=== PATIENT | female | born 1980 | race Caucasian/White ===

== ENCOUNTER 2017-03-26 12:24 | Emergency (ER) | payer OTHER ==
[2017-03-26 13:19] VITALS: BP 96/59
--- NOTE | 2017-03-26 13:31 | UC ---
UC General HPI - HPI Summary HPI Summary: complaint of feeling feverish feeling achy for 2 days ago nausea for 2 days - denies vomiting softer stool than normal- nausea has resolved intermittent sore throat nasal congestion for 2 days intermittent headaches and muscle achiness yesterday noticed a rash on her thighs denies coughing denies abdominal pain denies dysuria denies increase d frequency and urgency LMP - having currently 3 year old daughter with similiar illness last week taking ibuprofen, pepto bismal and dramimine with some relief - History of Current Complaint Chief Complaint: UCGeneralIllness Stated Complaint: FEVER ACHY NECK PAIN/LEGS SKIN COMPLAINT Time Seen by Provider: 03/26/17 13:24 Hx Obtained From: Patient - Allergy/Home Medications Allergies/Adverse Reactions: Allergies Allergy/AdvReac Type Severity Reaction Status Date / Time Sulfa Drugs Allergy Intermediate Hives Verified 03/26/17 13:18 Gluten Meal Allergy Abdominal Verified 03/26/17 13:18 Pain PMH/Surg Hx/FS Hx/Imm Hx Previously Healthy: Yes Psychological History: Anxiety, Depression - Surgical History Surgical History: Yes Surgery Procedure, Year, and Place: D & C. OVARIAN CYST REMOVED,. and tubal ligation 04/15/15 - Family History Known Family History: Positive: Hypertension - mother Negative: Cardiac Disease, Diabetes - Social History Occupation: Employed Full-time Lives: With Family Alcohol Use: Occasionally Substance Use Type: None Smoking Status (MU): Former Smoker When Did the Patient Quit Smoking/Using Tobacco: 05/2014 - Immunization History Most Recent Influenza Vaccination: 2014 Review of Systems Constitutional: Fever, Chills, Fatigue Skin: Rash Eyes: Negative ENT: Sore Throat, Nasal Discharge Respiratory: Negative Cardiovascular: Negative Gastrointestinal: Negative Genitourinary: Negative Motor: Negative Neurovascular: Negative Musculoskeletal: Negative Neurological: Headache Psychological: Negative All Other Systems Reviewed And Are Negative: Yes Physical Exam Triage Information Reviewed: Yes Appearance: Well-Appearing, No Pain Distress, Well-Nourished Vital Signs: Initial Vital Signs Temp 97.9 F 03/26/17 13:14 Pulse 66 03/26/17 13:14 Resp 16 03/26/17 13:14 BP 96/59 03/26/17 13:14 Pulse Ox 100 03/26/17 13:14 Vital Signs Reviewed: Yes Eyes: Positive: Conjunctiva Clear ENT: Positive: Pharyngeal erythema, Nasal congestion, Nasal drainage. Negative : TMs normal Neck: Positive: Supple, No Lymphadenopathy. Negative: Nuchal Rigidity Respiratory: Positive: Lungs clear, Normal breath sounds, No respiratory distress, No accessory muscle use Cardiovascular: Positive: RRR, No Murmur, Pulses Normal, Brisk Capillary Refill Abdomen Description: Positive: Nontender, No Organomegaly, Soft. Negative: CVA Tenderness (R), CVA Tenderness (L), Distended, Guarding Bowel Sounds: Positive: Present Musculoskeletal: Positive: No Edema Neurological: Positive: Alert Psychological Exam: Normal Skin: Positive: Other - both thighs with anh apearing rash Course/Dx - Course Course Of Treatment: exam completed. patient appears to have a viral illness similiar to daughters recent illness. will have her continue supportive care- fluids and NSAIDS. followup with PCP - Differential Dx - Multi-Symptom Provider Diagnoses: viral illness Discharge - Discharge Plan Condition: Stable Disposition: HOME Patient Education Materials: Fever in Adults (ED) Referrals: [id number] [Provider Group] Additional Instructions: You have a viral illness Increase fluids and rest Take acetaminophen or ibuprofen for fever or pain Please review your discharge instructions. If your symptoms do not improve please call your primary care provider or return to urgent care.
== END 2017-03-26 14:13 | disposition home or self-care (01) ==
LOC: UCCORT 12:24
DX: B34.9 Viral infection, unspecified (principal); F41.9 Anxiety disorder, unspecified; F32.9 Major depressive disorder, single episode, unspecified; Z88.2 Allergy status to sulfonamides; Z87.891 Personal history of nicotine dependence
CPT/HCPCS: 87651; 99211; G0463

== ENCOUNTER 2017-08-23 13:54 | Emergency (ER) | payer MEDICAID, OTHER ==
[2017-08-23 14:36] VITALS: BP 99/67
--- NOTE | 2017-08-23 14:39 | UC ---
Respiratory Complaint HPI - HPI Summary HPI Summary: 37 year old female with cough. Productive cough w/ green phlegm and runny nose since . Cough getting worse. Denies fever/chills. No meds taken today. Was getting better but 7 days ago cough worsened and having increased body aches and had cough spell at work today and cough at night keeping her up at night. [ End ] - History of Current Complaint Chief Complaint: UCRespiratory Stated Complaint: COUGH, RUNNY NOSE, HEADACHE Time Seen by Provider: 08/23/17 14:33 Hx Obtained From: Patient Hx Last Menstrual Period: 08/20/17 Onset/Duration: Gradual Onset Timing: Constant Severity Initially: Mild Severity Currently: Moderate Character: Cough: Productive Aggravating Factors: Nothing Alleviating Factors: Nothing Associated Signs And Symptoms: Positive: Nasal Congestion, Sinus Discomfort - Allergies/Home Medications Allergies/Adverse Reactions: Allergies Allergy/AdvReac Type Severity Reaction Status Date / Time Sulfa Drugs Allergy Intermediate Hives Verified 08/23/17 14:22 Gluten Meal Allergy Abdominal Verified 08/23/17 14:22 Pain Home Medications: Home Medications Folic Acid TAB* [Folvite TAB*] 1 tab DAILY 08/23/17 [History Confirmed 08/23/17] Lupus Med 4 tab WEEKLY 08/23/17 [History Confirmed 08/23/17] Venlafaxine EXT RELEASE CAP* [Effexor Xr CAP*] 1 tab DAILY 08/23/17 [History Confirmed 08/23/17] PMH/Surg Hx/FS Hx/Imm Hx Previously Healthy: Yes Cardiovascular History: Other Other Cardiovascular History: lupus Psychological History: Anxiety, Depression - Surgical History Surgical History: Yes Surgery Procedure, Year, and Place: D & C. OVARIAN CYST REMOVED,. 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 Alcohol Use: None Substance Use Type: None Smoking Status (MU): Former Smoker When Did the Patient Quit Smoking/Using Tobacco: 05/2014 - Immunization History Most Recent Influenza Vaccination: no Review of Systems Constitutional: Fatigue ENT: Sore Throat, Nasal Discharge, Sinus Congestion, Sinus Pain/Tenderness Respiratory: Cough Is Patient Immunocompromised?: No All Other Systems Reviewed And Are Negative: Yes Physical Exam Triage Information Reviewed: Yes Appearance: Well-Appearing, No Pain Distress, Well-Nourished Vital Signs: Initial Vital Signs Temp 98 F 08/23/17 14:24 Pulse 64 08/23/17 14:24 Resp 16 08/23/17 14:24 BP 99/67 08/23/17 14:24 Pulse Ox 100 08/23/17 14:24 Vital Signs Reviewed: Yes Eye Exam: Normal ENT Exam: Normal ENT: Positive: Nasal congestion Dental Exam: Normal Neck exam: Normal Respiratory Exam: Normal Cardiovascular Exam: Normal Musculoskeletal Exam: Normal Neurological Exam: Normal Psychological Exam: Normal UC Diagnostic Evaluation - Laboratory O2 Sat by Pulse Oximetry: 100 Respiratory Course/Dx - Course Course Of Treatment: Conservative treatment for 2-3 days and if worsened then start antibiotics. - Differential Dx/Diagnosis Differential Diagnosis/HQI/PQRI: Bronchitis, Lower Resp Infection, Sinusitis Provider Diagnoses: URI Discharge - Discharge Plan Condition: Guarded Disposition: HOME Prescriptions: Amoxicillin/Clavulanate TAB* [Augmentin TAB 875*] 875 mg PO BID #20 tab Benzonatate [Benzonatate 200 MG] 200 mg PO TID #20 cap Patient Education Materials: Upper Respiratory Infection (ED) Referrals: AYANNA Callahan [Primary Care Provider] - 4 Days Additional Instructions: As we discussed please use cough meds, sudafed, flonase and netti pot and if your symptoms worsen then star the antibiotics in 2-3 days
== END 2017-08-23 14:48 | disposition home or self-care (01) ==
LOC: UCCORT 13:54
DX: J06.9 Acute upper respiratory infection, unspecified (principal); Z87.891 Personal history of nicotine dependence
CPT/HCPCS: 99211; G0463

== ENCOUNTER 2017-09-22 10:28 | Emergency (ER) | payer MEDICAID, OTHER ==
--- NOTE | 2017-09-22 11:30 | ED ---
Throat Pain/Nasal Congestion - HPI Summary HPI Summary: 37 yr old female with the complaint of ear pain right side. Onset two days with sore throat and ear ache. Denies fever and chills. Denies trouble breathing, swallowing. No other complaints. - History of Current Complaint Time Seen by Provider: 09/22/17 11:16 - Allergies/Home Medications Allergies/Adverse Reactions: Allergies Allergy/AdvReac Type Severity Reaction Status Date / Time Sulfa Drugs Allergy Intermediate Hives Verified 08/23/17 14:22 Gluten Meal Allergy Abdominal Verified 08/23/17 14:22 Pain Home Medications: Home Medications Methotrexate TAB* 4 PO Q7D 09/22/17 [History] PMH/Surg Hx/FS Hx/Imm Hx Previously Healthy: Yes - Surgical History Surgery Procedure, Year, and Place: D & C. OVARIAN CYST REMOVED,. and tubal ligation 04/15/15 Infectious Disease History: Denies: Traveled Outside the [place] in Last 30 Days - Family History Known Family History: Positive: Hypertension - mother Negative: Cardiac Disease, Diabetes - Social History Occupation: Employed Full-time Alcohol Use: Occasionally Substance Use Type: Reports: None Smoking Status (MU): Former Smoker Review of Systems Constitutional: Negative Positive: Ear Ache All Other Systems Reviewed And Are Negative: Yes Physical Exam Triage Information Reviewed: Yes Vital Signs Reviewed: Yes Appearance: Positive: Well-Appearing, No Pain Distress Skin: Positive: Warm Head/Face: Positive: Normal Head/Face Inspection Eyes: Positive: EOMI ENT: Positive: Pharyngeal erythema - mild, TM dull - right, TM red - right Neck: Positive: Nontender Respiratory/Lung Sounds: Positive: Clear to Auscultation, Breath Sounds Present Cardiovascular: Positive: RRR. Negative: Murmur Abdomen Description: Positive: Nontender Musculoskeletal: Positive: Strength/ROM Intact Neurological: Positive: Sensory/Motor Intact, Alert, Oriented to Person Place, Time, CN Intact II-III Psychiatric: Positive: Normal - [place] Coma Scale Best Eye Response: 4 - Spontaneous Best Motor Response: 6 - Obeys Commands Best Verbal Response: 5 - Oriented EENT Course/Dx - Course Course Of Treatment: 37 yr old with right otitis media. Plan Rx with Amox. - Diagnoses Provider Diagnoses: Otitis media Discharge - Discharge Plan Condition: Good Disposition: HOME Prescriptions: Amoxicillin 500 mg PO TID #30 cap Patient Education Materials: Otitis Media (ED) Referrals: AYANNA Callahan [Primary Care Provider] - 2 Days
[2017-09-22 11:32] VITALS: BP 102/62
== END 2017-09-22 11:52 | disposition home or self-care (01) ==
LOC: UCCORT 10:28
DX: H66.91 Otitis media, unspecified, right ear (principal); Z88.2 Allergy status to sulfonamides; Z91.018 Allergy to other foods; Z87.891 Personal history of nicotine dependence
CPT/HCPCS: 99212; G0463

== ENCOUNTER 2018-07-19 12:32 | Emergency (ER) | payer OTHER ==
--- NOTE | 2018-07-19 12:49 | UC ---
Respiratory Complaint HPI - HPI Summary HPI Summary: 38 yo female presents with body aches and slight cough for the last 2 days. She has not been taking anything OTC. She tells me that her 3yo daughter was recently dx'd with PNA and pt is concerned that she is "starting to get something". Denies fever, chills, SOB, chest pain. - History of Current Complaint Stated Complaint: CONGESTION COUGH Time Seen by Provider: 07/19/18 12:49 Hx Obtained From: Patient Hx Last Menstrual Period: 09/15/17 Onset/Duration: Sudden Onset Character: Cough: Nonproductive - Allergies/Home Medications Allergies/Adverse Reactions: Allergies Allergy/AdvReac Type Severity Reaction Status Date / Time gluten Allergy Abdominal Verified 07/19/18 13:02 Pain Sulfa (Sulfonamide Allergy Hives Verified 07/19/18 13:02 Antibiotics) PMH/Surg Hx/FS Hx/Imm Hx - Additional Past Medical History Additional PMH: Lupus Psychological History: Anxiety, Depression - Surgical History Surgical History: Yes Surgery Procedure, Year, and Place: D & C. OVARIAN CYST REMOVED,. and tubal ligation 04/15/15 - Family History Known Family History: Positive: Hypertension - mother Negative: Cardiac Disease, Diabetes - Social History Alcohol Use: Occasionally Substance Use Type: None Smoking Status (MU): Former Smoker When Did the Patient Quit Smoking/Using Tobacco: 05/2014 - Immunization History Most Recent Influenza Vaccination: NO Review of Systems All Other Systems Reviewed And Are Negative: Yes Constitutional: Positive: Other - Body aches Skin: Positive: Negative Eyes: Positive: Negative ENT: Positive: Negative Respiratory: Positive: Cough Cardiovascular: Positive: Negative Gastrointestinal: Positive: Negative Musculoskeletal: Positive: Negative Neurological: Positive: Negative Psychological: Positive: Negative Physical Exam - Summary Physical Exam Summary: GENERAL: NAD. WDWN. No pain distress. SKIN: No rashes, sores, lesions, or open wounds. HEENT: Head: AT/NC Eyes: EOM intact. Conjunctiva clear without inflammation or discharge. Ears: Hearing grossly normal. TMs intact, no bulging, erythema, or edema. Nose: Nasal mucosa pink and moist. NTTP maxillary and frontal sinus. Throat: Posterior oropharynx without exudates, erythema, or tonsillar enlargement. Uvula midline. NECK: Supple. Nontender. No lymphadenopathy. CHEST: CTAB. No r/r/w. No accessory muscle use. Breathing comfortably and in no distress. CV: RRR. Without m/r/g. Pulses intact. Cap refill <2seconds NEURO: Alert. PSYCH: Age appropriate behavior. Triage Information Reviewed: Yes Vital Signs: Vital Signs: Temp Pulse Resp BP Pulse Ox 97.5 F 52 16 114/63 100 07/19/18 13:00 07/19/18 13:00 07/19/18 13:00 07/19/18 13:00 07/19/18 13:00 Vital Signs Reviewed: Yes Respiratory Course/Dx - Course Course Of Treatment: CXR: IMPRESSION: No active cardiopulmonary disease is identified. Suspect viral illness. Advised to try tylenol, mucinex, and robitussin OTC. F/u if symptoms persist or worsen. - Differential Dx/Diagnosis Provider Diagnoses: Viral syndrome Discharge - Sign-Out/Discharge Documenting (check all that apply): Patient Departure All imaging exams completed and their final reports reviewed: Yes - Discharge Plan Condition: Stable Disposition: HOME Patient Education Materials: Viral Syndrome (ED) Referrals: No Primary Care Phys,NOPCP [Primary Care Provider] - Additional Instructions: If you develop a fever, shortness of breath, chest pain, new or worsening symptoms - please call your PCP or go to the ED. - Billing Disposition and Condition Condition: STABLE Disposition: Home - Attestation Statements Provider Attestation: I was available for consult. This patient was seen by the FLACO. The patient was not presented to, seen by, or examined by me. -Vivi
[2018-07-19 13:06] VITALS: BP 114/63
== END 2018-07-19 13:23 | disposition home or self-care (01) ==
LOC: UCCORT 12:32
DX: B34.9 Viral infection, unspecified (principal); R05 Cough; R52 Pain, unspecified; R09.81 Nasal congestion; Z88.2 Allergy status to sulfonamides; Z91.018 Allergy to other foods; Z87.891 Personal history of nicotine dependence
CPT/HCPCS: 71046; 99211; G0463

== ENCOUNTER 2018-10-12 10:15 | Emergency (ER) | payer OTHER ==
[2018-10-12 11:47] VITALS: BP 105/71
--- NOTE | 2018-10-12 11:50 | UC ---
FLU HPI - HPI Summary HPI Summary: Pt c/o SWIFT cough X 2 days. denies fever chills nasal congestion congestion - History of Current Complaint Chief Complaint: UCRespiratory Stated Complaint: COUGH, HEADACHE Time Seen by Provider: 10/12/18 11:29 Hx Obtained From: Patient Hx Last Menstrual Period: 10/04/18 ?: No Onset/Duration: Sudden Onset, Lasting Days, Still Present Severity Currently: Mild Severity Initially: Mild Pain Intensity: 6 Associated Signs & Symptoms: Positive: Myalgia, Cough, Nasal Congestion, Headache Related Hx: Possible Flu/Infectious Exposure - Risk Factors Influenza Risk Factors: Negative - Allergy/Home Medications Allergies/Adverse Reactions: Allergies Allergy/AdvReac Type Severity Reaction Status Date / Time gluten Allergy Abdominal Verified 10/12/18 11:42 Pain Sulfa (Sulfonamide Allergy Hives Verified 10/12/18 11:42 Antibiotics) PMH/Surg Hx/FS Hx/Imm Hx Previously Healthy: Yes - Surgical History Surgical History: Yes Surgery Procedure, Year, and Place: D & C. OVARIAN CYST REMOVED,. and tubal ligation 04/15/15 - Family History Known Family History: Positive: Hypertension - mother Negative: Cardiac Disease, Diabetes - Social History Occupation: Employed Full-time Lives: With Family Alcohol Use: Occasionally Substance Use Type: None Smoking Status (MU): Former Smoker Have You Smoked in the Last Year: No When Did the Patient Quit Smoking/Using Tobacco: 05/2014 - Immunization History Most Recent Influenza Vaccination: NO Review of Systems All Other Systems Reviewed And Are Negative: Yes Constitutional: Positive: Negative Skin: Positive: Negative Eyes: Positive: Negative ENT: Positive: Negative Respiratory: Positive: Cough Cardiovascular: Positive: Negative Gastrointestinal: Positive: Negative Genitourinary: Positive: Negative Motor: Positive: Negative Neurovascular: Positive: Negative Musculoskeletal: Positive: Negative Neurological: Positive: Headache Psychological: Positive: Negative Is Patient Immunocompromised?: No Physical Exam Triage Information Reviewed: Yes Appearance: Well-Appearing Vital Signs: Initial Vital Signs Temp 98.8 F 10/12/18 11:43 Pulse 70 10/12/18 11:43 Resp 16 10/12/18 11:43 BP 105/71 10/12/18 11:43 Pulse Ox 100 10/12/18 11:43 Vital Signs Reviewed: Yes Eye Exam: Normal ENT Exam: Normal Dental Exam: Normal Neck exam: Normal Respiratory Exam: Normal Cardiovascular Exam: Normal Musculoskeletal Exam: Normal Neurological Exam: Normal Psychological Exam: Normal Skin Exam: Normal Flu Course/Dx - Differential Dx/Diagnosis Differential Diagnosis/HQI/PQRI: Bronchitis, Influenza, Upper Respiratory Infection Provider Diagnosis: Viral syndrome Discharge - Sign-Out/Discharge Documenting (check all that apply): Patient Departure All imaging exams completed and their final reports reviewed: No Studies - Discharge Plan Condition: Stable Disposition: HOME Prescriptions: Benzonatate CAP* [Tessalon 100 MG CAP*] 200 mg PO Q8H PRN #30 cap PRN Reason: Cough Guaifenesin/Pseudoephedrne HCl [Mucinex D ER 600-60 mg Tablet] 1 each PO Q12H # 14 tab.er.12h Patient Education Materials: Viral Syndrome (ED) Referrals: Rhina Strauss [Primary Care Provider] - If Needed - Billing Disposition and Condition Condition: STABLE Disposition: Home - Attestation Statements Provider Attestation: I was available for consult. This patient was seen by the FLACO. The patient was not presented to, seen by, or examined by me. EK
== END 2018-10-12 12:32 | disposition home or self-care (01) ==
LOC: UCCORT 10:15
DX: B34.9 Viral infection, unspecified (principal); R05 Cough; R51 Headache; Z88.2 Allergy status to sulfonamides; Z91.018 Allergy to other foods; Z87.891 Personal history of nicotine dependence
CPT/HCPCS: 99212; G0463

== ENCOUNTER 2018-12-02 15:49 | Emergency (ER) | payer OTHER ==
[2018-12-02 17:25] VITALS: BP 96/61
--- NOTE | 2018-12-02 17:34 | UC ---
Throat Pain/Nasal Vicente HPI - HPI Summary HPI Summary: Sore throat, fever over the past 2 days. - History of Current Complaint Chief Complaint: UCGeneralIllness Stated Complaint: SORE THROAT Time Seen by Provider: 12/02/18 17:33 Hx Obtained From: Patient Hx Last Menstrual Period: 11/29/18 ?: No Onset/Duration: Gradual Onset Severity: Mild Pain Intensity: 7 Cough: None Associated Signs & Symptoms: Positive: Fever - Allergies/Home Medications Allergies/Adverse Reactions: Allergies Allergy/AdvReac Type Severity Reaction Status Date / Time gluten Allergy Abdominal Verified 12/02/18 17:18 Pain Sulfa (Sulfonamide Allergy Hives Verified 12/02/18 17:18 Antibiotics) Home Medications: Home Medications Ibuprofen TAB* [Advil TAB*] 800 mg PO Q6H PRN 12/02/18 [History Confirmed ] PMH/Surg Hx/FS Hx/Imm Hx Previously Healthy: Yes Other Endocrine History: lupus - Surgical History Surgical History: Yes Surgery Procedure, Year, and Place: D & C. OVARIAN CYST REMOVED,. and tubal ligation 04/15/15. Yen--2019 - Family History Known Family History: Positive: Hypertension - mother Negative: Cardiac Disease, Diabetes - Social History Alcohol Use: Daily Substance Use Type: None Smoking Status (MU): Former Smoker Have You Smoked in the Last Year: No When Did the Patient Quit Smoking/Using Tobacco: 05/2014 - Immunization History Most Recent Influenza Vaccination: NO Review of Systems All Other Systems Reviewed And Are Negative: Yes Constitutional: Positive: Fever ENT: Positive: Sore Throat Is Patient Immunocompromised?: Yes - on Methotrexate for lupus weekly..has not taken in one week Physical Exam Triage Information Reviewed: Yes Appearance: Well-Appearing, No Pain Distress, Well-Nourished Vital Signs: Initial Vital Signs Temp 98.2 F 12/02/18 17:21 Pulse 62 12/02/18 17:21 Resp 16 12/02/18 17:21 BP 96/61 12/02/18 17:21 Pulse Ox 100 12/02/18 17:21 Vital Signs Reviewed: Yes Eye Exam: Normal ENT Exam: Normal ENT: Positive: Pharyngeal erythema - Minimal tonsillar erythema with exudate., TMs normal, Tonsillar swelling - Minimal tonsillar swelling, Tonsillar exudate, Uvula midline. Negative: Trismus, Muffled voice, Hoarse voice Neck exam: Normal Respiratory Exam: Normal Cardiovascular Exam: Normal Abdominal Exam: Normal Bowel Sounds: Positive: Present Musculoskeletal Exam: Normal Neurological Exam: Normal Psychological Exam: Normal Skin Exam: Normal Throat Pain/Nasal Course/Dx - Course Course Of Treatment: She has been comfortable here however her throat exam is consistent with a tonsillitis with exudate. I am going to treat her with amoxicillin. She did not take her methotrexate one week ago and she is not going to take this week therefore I feel its safe to give her the amoxicillin. - Differential Dx/Diagnosis Differential Diagnosis/HQI/PQRI: Pharyngitis Provider Diagnosis: Pharyngitis Discharge - Sign-Out/Discharge Documenting (check all that apply): Patient Departure All imaging exams completed and their final reports reviewed: No Studies - Discharge Plan Condition: Fair Disposition: HOME Prescriptions: Amoxicillin PO (*) [Amoxicillin 875 MG (*)] 875 mg PO BID 10 Days #20 tab Patient Education Materials: Tonsillitis (ED) Referrals: Rhina Strauss [Primary Care Provider] - Additional Instructions: Do not take your Methotrexate this week since you have not had it for one week anyway. Change your toothbrush in 24 hours. Follow up with your primary care provider in 3-4 days if no improvement - Billing Disposition and Condition Condition: FAIR Disposition: Home
== END 2018-12-02 18:05 | disposition home or self-care (01) ==
LOC: UCCORT 15:49
DX: J02.9 Acute pharyngitis, unspecified (principal); M32.9 Systemic lupus erythematosus, unspecified; Z87.891 Personal history of nicotine dependence; Z79.899 Other long term (current) drug therapy; Z91.018 Allergy to other foods; Z88.2 Allergy status to sulfonamides
CPT/HCPCS: 87651; 99212; G0463